=== PATIENT | female | born 1980 | race Caucasian/White ===

== ENCOUNTER 2023-04-04 13:59 | Outpatient (RCR) | payer MEDICAID, SELFPAY | END 2023-09-25 17:00 | disposition home or self-care (01) | LOC: HO.WCC 13:59 | PROVIDERS: PCP Family Medicine; Visit Provider Surgery | DX: S81.812D Laceration without foreign body, left lower leg, subsequent encounter (principal); S21.001D Unspecified open wound of right breast, subsequent encounter; F64.0 Transsexualism; Z86.19 Personal history of other infectious and parasitic diseases; Z98.86 Personal history of breast implant removal; Z79.2 Long term (current) use of antibiotics | CPT/HCPCS: 99214 ==

== ENCOUNTER → 2023-04-10 11:24 | Outpatient (BNVA) | payer MEDICAID, SELFPAY | PROVIDERS: PCP Family Medicine; Referring Provider Family Medicine; Visit Provider Surgery | DX: S81.802A Unspecified open wound, left lower leg, initial encounter (principal); X58.XXXA Exposure to other specified factors, initial encounter; Y93.9 Activity, unspecified; Y92.9 Unspecified place or not applicable; Y99.8 Other external cause status; L97.222 Non-pressure chronic ulcer of left calf with fat layer exposed; L97.223 Non-pressure chronic ulcer of left calf with necrosis of muscle; B20 Human immunodeficiency virus [HIV] disease | CPT/HCPCS: 99202 ==

== ENCOUNTER → 2023-04-25 09:42 | Day surgery (SDC) | payer MEDICAID, SELFPAY ==
[2023-04-23 09:56] VITALS: BMI 20.4
--- NOTE | 2023-04-25 07:39 | MHC.SHP ---
Pre-Procedural Eval Section A Date of Service: 04/25/23 The patient is an INPATIENT: No Changes since office visit: No Cold of Flu in the past 2 weeks, No New Medical Problems, No Changes in Medication and No Patient answered all questions The History & Physical has been completed within 30 days and I have reviewed it.: Yes Section B Chief Complaint: Unspecified open wound, unspecified lower leg, Allergies: Allergies Allergy/AdvReac Type Severity Reaction Status Date / Time Penicillins Allergy Severe RASH Unverified 04/23/23 09:41 codeine [Codeine] Allergy Intermediate RASH Unverified 04/23/23 09:41 oxycodone Allergy Intermediate Rash Verified 04/23/23 09:41 Plan I have reviewed the history and physical and performed a pertinent physical examination on my patient. No changes have occurred unless specified. Time Spent With Patient Time: Total time managing care of this patient today ____ minutes.
[2023-04-25 10:16] VITALS: BP 105/61; PULSE 90; RESP 18; TEMP 36.7; O2SAT 100
[2023-04-25] MEDS: Lactated Ringers 1,000 ML 100 ML IVCONT (10:17)
[2023-04-25 10:47] LABS: Amphetamine Screen Urine Not Detected (Not Detect); Barbiturates, Urine Not Detected (Not Detect); Benzodiazepines Screen Urine Not Detected (Not Detect); Cannabinoid Screen Urine Not Detected (Not Detect); Cocaine Screen Urine POSITIVE (Not Detect); Fentanyl, urine POSITIVE (Not Detect); Opiate Screen Urine POSITIVE (Not Detect); Phencyclidine Screen Urine Not Detected (Not Detect)
--- NOTE | 2023-04-25 11:05 | PC.NURSE ---
IV fluids were scanned. 2 attempts at IV insertion with no success due to excessive scarring on bilateral arms. No IV was placed. Decision was made to cancel procedure due to urine tox results. Dr. Onofre updated patient that procedure is cancelled. Security was called to escort patient out due to anger at realization of cancellation. Patient has all belongings. Mother to meet patient outside.
--- NOTE | 2023-04-25 11:11 | PC.NURSE ---
patient escorted out with 2 security guards due to swearing loudly, being beligerent, whipping open curtains with force and being rude to staff at news of cancellation.
== END | disposition home or self-care (01) ==
PROVIDERS: Anesthesiology; PCP Family Medicine; Visit Provider Surgery
DX: S81.809A Unspecified open wound, unspecified lower leg, initial encounter (principal); Z53.8 Procedure and treatment not carried out for other reasons; R82.5 Elevated urine levels of drugs, medicaments and biological substances; X58.XXXA Exposure to other specified factors, initial encounter; Y93.9 Activity, unspecified; Y92.9 Unspecified place or not applicable; Y99.9 Unspecified external cause status
CPT/HCPCS: 80307; J2250; J2795; J3010

== ENCOUNTER → 2023-05-14 09:13 | Day surgery (SDC) | payer MEDICAID, SELFPAY ==
[2023-05-09 09:50] VITALS: BMI 20.4
--- NOTE | 2023-05-13 12:54 | MHC.SHP ---
Pre-Procedural Eval Section A Date of Service: 05/13/23 The patient is an INPATIENT: No Changes since office visit: No Cold of Flu in the past 2 weeks, No New Medical Problems, No Changes in Medication and No Patient answered all questions The History & Physical has been completed within 30 days and I have reviewed it.: Yes Section B Chief Complaint: Unspecified open wound, unspecified lower leg, Allergies: Allergies Allergy/AdvReac Type Severity Reaction Status Date / Time Penicillins Allergy Severe RASH Verified 04/25/23 09:53 codeine [Codeine] Allergy Intermediate RASH Verified 04/25/23 09:53 oxycodone Allergy Intermediate Rash Verified 04/23/23 09:41 Plan I have reviewed the history and physical and performed a pertinent physical examination on my patient. No changes have occurred unless specified. Time Spent With Patient Time: Total time managing care of this patient today ____ minutes.
[2023-05-14 09:47] VITALS: BMI 21.5
[2023-05-14 09:49] VITALS: BP 103/64; PULSE 88; RESP 16; TEMP 36.8; O2SAT 98
[2023-05-14 10:32] LABS: Hematocrit 21.6 % (37.0-47.0); Mean Corpuscular HGB Conc 30.6 g/dl (31.0-35.0); Mean Corpuscular Hemoglobin 21.9 pg (27.0-33.0); Mean Corpuscular Volume 71.5 fL (80.0-98.0); Mean Platelet Volume 9.5 fL (9.4-12.3); Platelet Count 145 X10*3/uL (160-400); Red Blood Count 3.02 X10*6/uL (4.20-5.50); Red Cell Distribution Width 16.8 % (11.0-16.0)
[2023-05-14 10:33] LABS: Anion Gap 10 (12-20); Carbon Dioxide 20 mmol/L (22-29); Chloride 106 mmol/L (96-108); Potassium 4.1 mmol/L (3.3-5.1); Sodium 132 mmol/L (135-145)
[2023-05-14 10:35] LABS: Hemoglobin 6.6 g/dl (12.0-16.0)
--- NOTE | 2023-05-14 10:36 | PC.NURSE ---
Dr. Hoskins updated of critical lab value as reported from chemistry of hemoglobin of 6.6. Dr. Hoskins speaking with patient now.
--- NOTE | 2023-05-14 10:43 | PC.NURSE ---
Dr. Del Toro and Dr. Hoskins have both spoke with patient regarding critical lab results and decision was made to send patient to emergency room.
--- NOTE | 2023-05-14 10:47 | HO.ANESEVENT ---
Anesthesia Event Note Date of Service: 05/14/23 Event Note: Pt seen pre-op for a debridement with Dr. Hoskins. Pt refusing to urinate for tox screen, but admits to doing illicit substances within the last couple of days. Labs obtained today show H/H of 6.6 and 21.6, which was significantly lower than in 2020when labs were last obtained. Surgical case was cancelled and pt was urged to go to ER, but patient adamantly refused. Time Spent With Patient Time: Total time managing care of this patient today ____ minutes.
--- NOTE | 2023-05-14 10:48 | PC.NURSE ---
Patient arrived to preop room. Left leg wrapped up with gauze. Wound present on right leg, open to air. Patient states My right leg opened up too. Please let the doctor know . This nurse wrapped up right leg with ABD and gauze for protection during preop. Labs drawn per Dr. Del Toro's request. Utox unable to be obtained due to patient not being able to pee. When starting IV, Patient voiced I did use cocaine 3 days ago, nothing else . Patient tearful, reassured by this nurse. Dr. Del Toro made aware. Chemistry called with critical lab result, HGB 6.6. Dr. Hoskins and Dr. Del Toro made aware and at bedside requesting patient be transferred to ED. Patient refused. All belongings returned to patient, escorted to waiting area.
== END ==
PROVIDERS: Anesthesiology; PCP Family Medicine; Visit Provider Surgery
DX: S81.809A Unspecified open wound, unspecified lower leg, initial encounter (principal); Z53.8 Procedure and treatment not carried out for other reasons; Z88.8 Allergy status to other drugs, medicaments and biological substances; X58.XXXA Exposure to other specified factors, initial encounter; Y93.9 Activity, unspecified; Y92.9 Unspecified place or not applicable; Y99.9 Unspecified external cause status
CPT/HCPCS: 36415; 80051; 85027; 99499

== ENCOUNTER 2023-09-17 10:08 | Outpatient (REF) | payer MEDICAID, SELFPAY ==
[2023-09-17 10:58] LABS: MANUAL DIFF FLAG NO
[2023-09-17 11:10] LABS: Basophils Percent Auto 0.2 % (0-2); Eosinophils Absolute Auto 0.2 X10*3/uL (0.0-0.4); Eosinophils Percent Auto 3.7 % (0-4); Hematocrit 34.3 % (37.0-47.0); Imm Gran Abs Auto 0.02 X10*3/uL (0.00-0.03); Imm Gran Pct Auto 0.5 % (0.0-0.4); Lymphocytes Absolute Auto 1.3 X10*3/uL (1.2-4.9); Lymphocytes Percent Auto 30.7 % (20-40); Mean Corpuscular HGB Conc 32.1 g/dl (31.0-35.0); Mean Corpuscular Hemoglobin 25.8 pg (27.0-33.0); Mean Corpuscular Volume 80.5 fL (80.0-98.0); Mean Platelet Volume 9.8 fL (9.4-12.3); Monocytes Absolute Auto 0.3 X10*3/uL (0.1-1.2); Monocytes Percent Auto 7.1 % (2-11); Neutrophils Absolute Auto 2.4 x10*3/uL (2.0-8.3); Neutrophils Percent Auto 57.8 % (45-73); Platelet Count 190 X10*3/uL (160-400); Red Blood Count 4.26 X10*6/uL (4.20-5.50); Red Cell Distribution Width 15.8 % (11.0-16.0); White Blood Count 4.1 X10*3/uL (4.8-10.8)
[2023-09-17 12:18] LABS: Alanine Aminotransferase 22 U/L (0-31); Albumin Level 3.3 g/dL (3.5-5.0); Alkaline Phosphatase 128 U/L (39-117); Anion Gap 12 (12-20); Aspartate Amino Transferase 28 U/L (5-31); Bilirubin Total 0.7 mg/dL (0.0-1.0); Blood Urea Nitrogen 13 mg/dL (9-16); Calcium 9.9 mg/dL (8.4-10.2); Carbon Dioxide 28 mmol/L (22-29); Chloride 98 mmol/L (96-108); Estimated Glomerular Filt Rate > 60; Glucose Random 74 mg/dL (60-115); Potassium 3.5 mmol/L (3.3-5.1); Sodium 134 mmol/L (135-145); Total Protein 9.9 g/dL (6.5-8.0)
[2023-09-17 12:22] LABS: HBS Num1 3.38 mIU/mL (0-7.99); HBsAGNum1 0.29 S/CO (0.00-0.99); Hepatitis B Surface Antigen Negative (Negative); ~Hepatitis B Surface Antibody NONREACTIVE (Nonreactive)
[2023-09-17 12:24] LABS: Syphilis Screen Nonreactive (Nonreactive)
[2023-09-17 12:25] LABS: Hepatitis A Antibody IgG REACTIVE (Nonreactive); Hepatitis A Antibody IgM 0.41 Index (0-0.79); ~Hepatitis A Antibody IgG 5.13 S/CO (0.00-0.99); ~Hepatitis A Antibody IgM Nonreactive (Nonreactive)
[2023-09-20 08:33] LABS: HCV Log PCR <1.18 NOT DETECTED Log IU/mL (NOT DETECTED); HepC Viral Load <15 NOT DETECTED IU/mL (NOT DETECTED)
== END 2023-09-17 10:09 | disposition home or self-care (01) ==
LOC: HO.HHCL 10:08
PROVIDERS: Visit Provider Internal Medicine
DX: F11.20 Opioid dependence, uncomplicated (principal)
CPT/HCPCS: 36415; 80053; 85025; 86706; 86708; 86709; 86780; 87340; 87522

== ENCOUNTER 2023-09-25 21:38 | Emergency (ER) | payer MEDICAID, SELFPAY ==
[2023-09-25 21:59] VITALS: BP 108/68; PULSE 83; RESP 16; O2SAT 99; BMI 19.7
--- NOTE | 2023-09-25 22:06 | ED_ITS ---
HPI - Wound/Laceration General Chief Complaint: General Medical Stated Complaint: ?? Time Seen by Provider: 09/25/23 21:50 Source: patient Mode of arrival: EMS Limitations: no limitations History of Present Illness HPI narrative: 43-year-old female history of history of venous stasis dermatitis, PTSD, male to female transgender, anemia, anxiety, HIV disease , chronic nonhealing right leg wound who had a skin graft done yesterday at [facility] and has a wound VAC applied over the skin graft who presents emergency department for evaluation of malfunction of the wound VAC. patient states that she kept getting an error message that there was a week and he felt as if the wound VAC head shot off therefore she called an ambulance and came to emergency department for evaluation. She denies any systemic symptoms such as fever, chills, fatigue, weakness. Related Data Home Medications Medication Instructions Recorded Confirmed albuterol sulfate 90 mcg/actuation 2 puff inhalation Q4-6H PRN 04/23/23 04/23/23 aerosol inhaler (Ventolin HFA) Shortness Of Breath bictegravir 50 mg-emtricitabine 1 tab PO QAM 04/23/23 05/14/23 200 mg-tenofovir alafenam 25 mg tablet (Biktarvy) dronabinol 5 mg capsule 5 mg PO BID 04/23/23 05/14/23 ferrous sulfate 325 mg (65 mg 325 mg PO DAILY 04/23/23 05/14/23 iron) tablet fluticasone propionate 110 1 puff inhalation BID 04/23/23 05/14/23 mcg/actuation HFA aerosol inhaler (Flovent HFA) gabapentin 600 mg tablet 600 mg PO TID 04/23/23 05/14/23 methadone 10 mg/5 mL oral solution 40 mg PO DAILY 04/23/23 05/14/23 Allergies Allergy/AdvReac Type Severity Reaction Status Date / Time Penicillins Allergy Severe RASH Verified 09/25/23 22:05 codeine [Codeine] Allergy Intermediate RASH Verified 09/25/23 22:05 oxycodone Allergy Intermediate Rash Verified 09/25/23 22:05 Review of Systems Review of Systems: Yes all other systems are reviewed and are negative PMFSH Past Medical History Medical History Venous stasis dermatitis PTSD (post-traumatic stress disorder) [employer]-umpobu transgender person Anemia Anxiety HIV (human immunodeficiency virus infection) Surgical History History of incision and drainage Social History Social History Are you a primary career transition specialist to a significant other at home: No Do you presently have visiting nurse or other home services: No Patient Tobacco Use Status: Former Tobacco user Quit Date: 2017 Tobacco use type: Cigarette Years Smoked: 14 Smoked in Last 30 Days: Yes Use of substances other than those prescribed or required for medical reasons: No Advance Directives: Yes Advance Directives on File: No Physical Exam Vital Signs: Vital Signs: Last Vital Signs Pulse 83 09/25/23 21:59 Resp 16 09/25/23 21:59 BP 108/68 09/25/23 21:59 Pulse Ox 99 09/25/23 21:59 O2 Del Method Room Air 09/25/23 21:59 BMI result Body Mass Index 19.7 Vital signs were normal Exam Patient has a skin graft over the right pretibial area which is covered by a wound VAC. there is no erythema or increased warmth. The graft site on the right medial thigh has no increased erythema or warmth. Medical Decision Making Medical Decision Making MDM Narrative: 43-year-old female history of history of venous stasis dermatitis, PTSD, male to female transgender, anemia, anxiety, HIV disease , chronic nonhealing right leg wound who had a skin graft done yesterday at [facility] and has a wound VAC applied over the skin graft who presents emergency department for evaluation of malfunction of the wound VAC. the patient's surgical wounds do not appear to be infected. The wound VAC appears to be functioning and is on continuous suction. Since the patient reported that the wound VAC event error message of air leak, I asked the nurse to reinforce the margins of occlusive dressing with Tegaderm to try to prevent any further leaks. Patient will be discharged back to home by ambulance since she is unable to walk. Differential Diagnosis Differential Diagnoses: The differential diagnosis associated with the presentation includes Differential diagnosis includes was not limited to wound infection, malfunction of wound VAC, air leak around occlusive dressing Discharge Plan Discharge Clinical Impression: Encounter for management of wound VAC Patient Disposition: Home, Self-Care Additional Instructions: At this time, appears to be wound VAC is functioning normally. The nurse reinforced the margins of the occlusive dressings with Tegaderm to try to prevent further leaks. Follow-up with your [facility] surgeon for re-evaluation if you continue to have error messages on the wound VAC. Please return to the emergency department if your symptoms get worse or if you develop any symptoms that are concerning to you. Prescriptions: No Action gabapentin 600 mg tablet 600 mg PO TID methadone 10 mg/5 mL Solution 40 mg PO DAILY dronabinol 5 mg capsule 5 mg PO BID ferrous sulfate 325 mg (65 mg iron) tablet 325 mg PO DAILY albuterol sulfate [Ventolin HFA] 90 mcg/actuation HFA aerosol inhaler 2 puff INHALATION Q4-6H PRN (Reason: Shortness Of Breath) fluticasone propionate [Flovent HFA] 110 mcg/actuation HFA aerosol inhaler 1 puff INHALATION BID Biktarvy 50-200-25 mg tablet 1 tab PO QAM
--- NOTE | 2023-09-25 22:15 | PC.NURSE ---
Pt ca&ox4, no signs of distress. Pt denies pain wound vac currently working and no longer reporting an air leak plan of care ongoing.
== END 2023-09-26 00:35 | disposition home or self-care (01) ==
PROVIDERS: Emergency Provider Emergency Medicine Emergency Medical Services
DX: Z48.00 Encounter for change or removal of nonsurgical wound dressing (principal); S81.801D Unspecified open wound, right lower leg, subsequent encounter; X58.XXXD Exposure to other specified factors, subsequent encounter
CPT/HCPCS: 99282; 99284

== ENCOUNTER 2024-03-19 14:10 | Outpatient (REF) | payer MEDICAID, SELFPAY | END 2024-03-19 14:11 | disposition home or self-care (01) | LOC: HO.HHCL 14:10 | PROVIDERS: Visit Provider Family Medicine | DX: Z13.89 Encounter for screening for other disorder (principal) ==

== ENCOUNTER 2024-04-20 12:19 | Outpatient (REF) | payer MEDICAID, SELFPAY ==
[2024-04-20 13:42] LABS: MANUAL DIFF FLAG NO
[2024-04-20 14:11] LABS: Basophils Percent Auto 0.3 % (0-2); Eosinophils Absolute Auto 0.1 X10*3/uL (0.0-0.4); Eosinophils Percent Auto 2.7 % (0-4); Hematocrit 32.3 % (37.0-47.0); Hemoglobin 10.4 g/dl (12.0-16.0); Imm Gran Abs Auto 0.01 X10*3/uL (0.00-0.03); Imm Gran Pct Auto 0.3 % (0.0-0.4); Lymphocytes Absolute Auto 0.8 X10*3/uL (1.2-4.9); Lymphocytes Percent Auto 26.1 % (20-40); Mean Corpuscular HGB Conc 32.2 g/dl (31.0-35.0); Mean Corpuscular Hemoglobin 23.4 pg (27.0-33.0); Mean Corpuscular Volume 72.7 fL (80.0-98.0); Mean Platelet Volume 9.9 fL (9.4-12.3); Monocytes Absolute Auto 0.2 X10*3/uL (0.1-1.2); Monocytes Percent Auto 5.4 % (2-11); Neutrophils Percent Auto 65.2 % (45-73); Platelet Count 171 X10*3/uL (160-400); Red Blood Count 4.44 X10*6/uL (4.20-5.50); Red Cell Distribution Width 16.5 % (11.0-16.0)
[2024-04-20 14:57] LABS: Alanine Aminotransferase 17 U/L (0-31); Albumin Level 2.5 g/dL (3.5-5.0); Alkaline Phosphatase 158 U/L (39-117); Anion Gap 10 (12-20); Aspartate Amino Transferase 21 U/L (5-31); Bilirubin Total 0.6 mg/dL (0.0-1.0); Blood Urea Nitrogen 15 mg/dL (9-16); Calcium 8.8 mg/dL (8.4-10.2); Carbon Dioxide 26 mmol/L (22-29); Chloride 102 mmol/L (96-108); Cholesterol 87 mg/dL (<200); Estimated Glomerular Filt Rate 55; Glucose Random 96 mg/dL (60-115); HDL Cholesterol 10 mg/dL (>40); LDL Cholesterol Calculated 52 mg/dL (<100); Potassium 3.8 mmol/L (3.3-5.1); Sodium 134 mmol/L (135-145); Total Protein 8.9 g/dL (6.5-8.0); Triglycerides 127 mg/dL (<150)
[2024-04-20 15:33] LABS: Iron 35 mcg/dL (30-160); Percent Iron Saturation 23 % (15-50); Total Iron Binding Capacity 155 mcg/dL (228-428); Unsaturated Iron Binding 120 ug/dL
[2024-04-20 15:53] LABS: Ferritin 524 ng/mL (10-250)
[2024-04-20 20:19] LABS: Reflex LDLD? No
[2024-04-21 08:47] LABS: ~HepC Num1 12.11 S/CO (0.00-0.79); ~Hepatitis C Antibody Reactive (Nonreactive)
[2024-04-21 14:28] LABS: HIV RNA PCR Qn Copies NOT DETECTED copies/mL (NOT DETECTED); HIV RNA PCR Qn Log Copies NOT DETECTED (NOT DETECTED)
[2024-04-22 06:38] LABS: RPR Rapid Plasma Reagin NON-REACTIVE (NON-REACTIVE)
[2024-04-23 02:18] LABS: TS Negative Control Passed; TS Panel A 0; TS Panel B 0; TS Positive Control Passed; TSpotTB Negative (Negative)
[2024-04-23 18:30] LABS: Absolute CD3 Count 645 cells/uL (840-3060); Absolute CD4 Count 264 cells/uL (490-1740); Absolute CD8 Count 363 cells/uL (180-1170); Absolute Lymphocytes 748 cells/uL (850-3900); CD4 CD8 Ratio 0.73 (0.86-5.00); Percent CD3 Cells 86 % (57-85); Percent CD4 Cells 35 % (30-61); Percent CD8 Cells 48 % (12-42)
[2024-04-27 13:24] LABS: HCV Log PCR <1.18 NOT DETECTED Log IU/mL (NOT DETECTED); HepC Viral Load <15 NOT DETECTED IU/mL (NOT DETECTED)
== END 2024-04-20 12:20 | disposition home or self-care (01) ==
LOC: HO.HHCL 12:19
PROVIDERS: Visit Provider Student in an Organized Health Care Education/Training Program
DX: B20 Human immunodeficiency virus [HIV] disease (principal)
CPT/HCPCS: 36415; 80053; 80061; 82728; 83540; 85025; 86359; 86360; 86481; 86592; 86803; 87522; 87536

== ENCOUNTER 2024-11-23 13:51 | Outpatient (REF) | payer MEDICAID, SELFPAY ==
[2024-11-23 16:14] LABS: Eosinophils Percent Auto 2.2 % (0-4); Hematocrit 28.6 % (37.0-47.0); Hemoglobin 9.3 g/dl (12.0-16.0); Lymphocytes Absolute Auto 0.4 X10*3/uL (1.2-4.9); Lymphocytes Percent Auto 38.5 % (20-40); MANUAL DIFF FLAG SCAN; Mean Corpuscular HGB Conc 32.5 g/dl (31.0-35.0); Mean Corpuscular Hemoglobin 25.5 pg (27.0-33.0); Mean Corpuscular Volume 78.4 fL (80.0-98.0); Mean Platelet Volume 11.2 fL (9.4-12.3); Monocytes Absolute Auto 0.1 X10*3/uL (0.1-1.2); Monocytes Percent Auto 6.6 % (2-11); Neutrophils Absolute Auto 0.5 x10*3/uL (2.0-8.3); Neutrophils Percent Auto 52.7 % (45-73); Red Blood Count 3.65 X10*6/uL (4.20-5.50); Red Cell Distribution Width 19.5 % (11.0-16.0); SCAN SMEAR FLAG 1
[2024-11-23 16:27] LABS: Alanine Aminotransferase 15 U/L (0-31); Albumin Level 1.5 g/dL (3.5-5.0); Alkaline Phosphatase 317 U/L (39-117); Anion Gap 8 (12-20); Aspartate Amino Transferase 30 U/L (5-31); Bilirubin Direct 0.3 mg/dL (0.0-0.5); Bilirubin Total 0.4 mg/dL (0.0-1.0); Blood Urea Nitrogen 33 mg/dL (9-16); Calcium 9.2 mg/dL (8.4-10.2); Carbon Dioxide 25 mmol/L (22-29); Chloride 101 mmol/L (96-108); Estimated Glomerular Filt Rate 38; Glucose Random 107 mg/dL (60-115); Potassium 3.8 mmol/L (3.3-5.1); Sodium 130 mmol/L (135-145); Total Protein 9.1 g/dL (6.5-8.0)
[2024-11-23 16:31] LABS: Osmolality, Serum 293 mosm/kg (281-305)
[2024-11-23 17:04] LABS: Folate 7.5 ng/mL (> or = 4.0); Vitamin B12 1109 pg/mL (200-900)
[2024-11-23 18:49] LABS: Platelet Count 70 X10*3/uL (160-400); White Blood Count 0.9 X10*3/uL (4.8-10.8)
[2024-11-23 19:47] LABS: SLIDE REVIEW VERIFIED
[2024-11-29 12:53] LABS: Absolute CD3 Count 244 cells/uL (840-3060); Absolute CD4 Count 92 cells/uL (490-1740); Absolute CD8 Count 143 cells/uL (180-1170); Absolute Lymphocytes 284 cells/uL (850-3900); CD4 CD8 Ratio 0.64 (0.86-5.00); Percent CD3 Cells 86 % (57-85); Percent CD4 Cells 32 % (30-61); Percent CD8 Cells 50 % (12-42)
== END 2024-11-23 13:52 | disposition home or self-care (01) ==
LOC: HO.HHCL 13:51
PROVIDERS: Student in an Organized Health Care Education/Training Program; Visit Provider Internal Medicine
DX: B20 Human immunodeficiency virus [HIV] disease (principal); D50.9 Iron deficiency anemia, unspecified; E87.1 Hypo-osmolality and hyponatremia
CPT/HCPCS: 36415; 80053; 80076; 82248; 82607; 82746; 83930; 85025; 86359; 86360

== ENCOUNTER 2025-03-12 12:13 | Outpatient (REF) | payer MEDICAID, SELFPAY ==
[2025-03-12 13:57] LABS: Basophils Percent Auto 0.4 % (0-2); Eosinophils Absolute Auto 0.1 X10*3/uL (0.0-0.4); Eosinophils Percent Auto 3.1 % (0-4); Hematocrit 28.3 % (37.0-47.0); Hemoglobin 9.2 g/dl (12.0-16.0); Imm Gran Abs Auto 0.01 X10*3/uL (0.00-0.03); Imm Gran Pct Auto 0.4 % (0.0-0.4); Lymphocytes Absolute Auto 0.6 X10*3/uL (1.2-4.9); Lymphocytes Percent Auto 26.2 % (20-40); Mean Corpuscular HGB Conc 32.5 g/dl (31.0-35.0); Mean Corpuscular Hemoglobin 23.7 pg (27.0-33.0); Mean Corpuscular Volume 72.8 fL (80.0-98.0); Mean Platelet Volume 9.6 fL (9.4-12.3); Monocytes Absolute Auto 0.1 X10*3/uL (0.1-1.2); Monocytes Percent Auto 4.4 % (2-11); Neutrophils Absolute Auto 1.5 x10*3/uL (2.0-8.3); Neutrophils Percent Auto 65.5 % (45-73); Platelet Count 109 X10*3/uL (160-400); Red Blood Count 3.89 X10*6/uL (4.20-5.50); Red Cell Distribution Width 16.7 % (11.0-16.0)
[2025-03-12 13:58] LABS: White Blood Count 2.3 X10*3/uL (4.8-10.8)
[2025-03-12 14:19] LABS: Alanine Aminotransferase 20 U/L (0-31); Albumin Level 2.8 g/dL (3.5-5.0); Alkaline Phosphatase 122 U/L (39-117); Anion Gap 7 (12-20); Aspartate Amino Transferase 31 U/L (5-31); Bilirubin Total 0.4 mg/dL (0.0-1.0); Blood Urea Nitrogen 30 mg/dL (9-16); Calcium 10.6 mg/dL (8.4-10.2); Carbon Dioxide 23 mmol/L (22-29); Chloride 104 mmol/L (96-108); Estimated Glomerular Filt Rate 37; Glucose Random 78 mg/dL (60-115); Potassium 3.4 mmol/L (3.3-5.1); Sodium 131 mmol/L (135-145); Total Protein 9.2 g/dL (6.5-8.0)
[2025-03-13 14:49] LABS: HIV RNA PCR Qn Copies 29 copies/mL (NOT DETECTED); HIV RNA PCR Qn Log Copies 1.46 (NOT DETECTED)
[2025-03-16 22:08] LABS: Absolute CD3 Count 448 cells/uL (840-3060); Absolute CD4 Count 185 cells/uL (490-1740); Absolute CD8 Count 243 cells/uL (180-1170); Absolute Lymphocytes 523 cells/uL (850-3900); CD4 CD8 Ratio 0.76 (0.86-5.00); Percent CD3 Cells 86 % (57-85); Percent CD4 Cells 35 % (30-61); Percent CD8 Cells 46 % (12-42)
== END 2025-03-12 12:14 | disposition home or self-care (01) ==
LOC: HO.HHCL 12:13
PROVIDERS: Internal Medicine; Visit Provider Student in an Organized Health Care Education/Training Program
DX: B20 Human immunodeficiency virus [HIV] disease (principal); D50.9 Iron deficiency anemia, unspecified
CPT/HCPCS: 36415; 80053; 85025; 86359; 86360; 87536

== ENCOUNTER 2025-05-27 12:04 | Outpatient (REF) | payer MEDICAID, SELFPAY ==
--- OUTSIDE RECORDS SUMMARY | 2025-05-27 13:02 | XMS_ITS | Clinical Summary ---
Author Organization [facility] it[facility] Address [address] [place] [address] Care Team Providers Care Rn Staff Name Role Phone Unavailable Primary Care Provider Unavailabl e Social History Tobacco Use Types Packs/Day Years Used Date Smoking Tobacco: Never Assessed Comments Unknown Sex and Gender Information Value Date Recorded Sex Assigned at Not on file Legal Sex Female 9:55 AM EST Gender Identity Not on file Sexual Orientation Not on file Plan of Treatment Health Maintenance Due Date Last Done Comments Breast Cancer Screening 1981 DTaP,Tdap,and Td Vaccines (1 - Tdap) 01/29/2000 Hepatitis B Vaccines (1 of 3 - 19+ 3-dose series) 01/29/2000 Cervical Cancer Screening: P ap Smear 2002 HIV Screening 09/11/2022 Hepatitis C Screening 09/11/2022 Social Influencers of Health Screening 09/11/2022 COVID-19 Vaccine ( - 2023-2 5 season) 2024 Depression Screening 10/14/2024 Influenza Vaccine (#1) 2025 HIB Vaccines Aged Out No longer eligi ble based on patient's age to complete this topic HPV Vaccines Aged Out No longer eligi ble based on patient's age to complete this topic Hepatitis A Vaccines Aged Out No long er eligible based on patient's age to complete this topic IPV Vaccines Aged Out No longer eligi ble based on patient's age to complete this topic MMR Vaccines Aged Out No longer eligi ble based on patient's age to complete this topic Meningococcal ACWY Vaccine Aged Out N o longer eligible based on patient's age to complete this topic Meningococcal B Vaccine Aged Out No l onger eligible based on patient's age to complete this topic Pneumococcal Vaccine: Pediat rics (0 to 5 Years) and At-Risk Patients (6 to 49 Years) Aged Out No longer eligible b ased on patient's age to complete this topic RSV Immunization Patients Un hawk 20 months Aged Out No longer eligible b ased on patient's age to complete this topic Varicella Vaccines Aged Out No longer eligible based on patient's age to complete this topic
[2025-05-27 13:40] LABS: MANUAL DIFF FLAG NO
[2025-05-27 13:46] LABS: Hematocrit 26.0 % (37.0-47.0); Hemoglobin 8.4 g/dl (12.0-16.0); Imm Gran Abs Auto 0.01 X10*3/uL (0.00-0.03); Imm Gran Pct Auto 0.5 % (0.0-0.4); Lymphocytes Absolute Auto 0.6 X10*3/uL (1.2-4.9); Mean Corpuscular HGB Conc 32.3 g/dl (31.0-35.0); Mean Corpuscular Hemoglobin 23.1 pg (27.0-33.0); Mean Corpuscular Volume 71.6 fL (80.0-98.0); NRBC Abs Auto 0.000 X10*3/uL (0.0-0.012); NRBC Pct Auto 0.0 /100WBC (0.0-0.2); Platelet Count 192 X10*3/uL (160-400); Red Blood Count 3.63 X10*6/uL (4.20-5.50); SCAN SMEAR FLAG 1
[2025-05-27 13:51] LABS: White Blood Count 2.1 X10*3/uL (4.8-10.8)
[2025-05-27 14:10] LABS: Parathyroid Hormone Intact < 4.0 pg/mL (8.7-77.1)
[2025-05-27 14:19] LABS: Alanine Aminotransferase 6 U/L (0-31); Albumin Level 2.5 g/dL (3.5-5.0); Alkaline Phosphatase 137 U/L (39-117); Anion Gap 10 (12-20); Aspartate Amino Transferase 26 U/L (5-31); Blood Urea Nitrogen 27 mg/dL (9-16); Calcium 11.0 mg/dL (8.4-10.2); Carbon Dioxide 26 mmol/L (22-29); Chloride 99 mmol/L (96-108); Estimated Glomerular Filt Rate 40; Magnesium 1.9 mg/dL (1.6-2.6); Potassium 3.6 mmol/L (3.3-5.1); Sodium 131 mmol/L (135-145); Total Protein 8.8 g/dL (6.5-8.0)
[2025-05-27 14:28] LABS: Osmolality, Serum 285 mosm/kg (281-305)
[2025-05-31 21:38] LABS: Calcium, Ionized 6.5 mg/dL (4.7-5.5)
== END 2025-05-27 12:05 | disposition home or self-care (01) ==
LOC: HO.10HDLNP 12:04
PROVIDERS: Internal Medicine; PCP Student in an Organized Health Care Education/Training Program; Visit Provider Student in an Organized Health Care Education/Training Program
DX: B20 Human immunodeficiency virus [HIV] disease (principal); E87.1 Hypo-osmolality and hyponatremia
CPT/HCPCS: 80053; 82330; 83735; 83930; 83970; 84100; 85025

== ENCOUNTER 2025-06-28 11:26 | Outpatient (REF) | payer MEDICAID, SELFPAY ==
--- OUTSIDE RECORDS SUMMARY | 2025-06-28 15:42 | XMS_ITS | Clinical Summary ---
Author Organization [facility] Address [address] [place] [address] Care Team Providers Care Photographic Artist Name Role Phone Unavailable Primary Care Provider [...] 09/11/2022 Social Influencers of Health Screening 09/11/2022 Depression Screening 10/14/2024 COVID-19 Vaccine ( - 2023-2 5 season) 2025 Influenza Vaccine (#1) 2025 HIB Vaccines Aged [...]
== END 2025-06-28 11:27 | disposition home or self-care (01) ==
LOC: HO.HHCL 11:26
PROVIDERS: PCP Student in an Organized Health Care Education/Training Program; Visit Provider Student in an Organized Health Care Education/Training Program
DX: Z13.89 Encounter for screening for other disorder (principal)

== ENCOUNTER 2025-08-31 13:55 | Outpatient (REF) | payer MEDICAID, SELFPAY ==
[2025-08-31 17:34] LABS: CT PCR Urine NOT DETECTED (Not Detect.); NG PCR Urine NOT DETECTED (Not Detect.)
--- OUTSIDE RECORDS SUMMARY | 2025-09-01 07:46 | XMS_ITS | Clinical Summary ---
Author Organization [facility] Address [address] [place] [address] Phone Care Team Providers Care Biology Manager Name Role Phone Physician, Pcp Unknown Primary Care Provider Zarina vailable Allergies No known active allergies Medications naloxone (NARCAN) 4 mg/0.1 mL nasal spray Administer 1 each (4 mg total) into affected nostril(s) if needed for opioid reversal or respiratory depression. Give 4 mg (1 spray) into one nostril. May repeat every 2-3 minutes if needed, alternating nostrils, until medical assistance becomes available. 2 each 07/19/20 26 Active Encounters Date Type Department Care Team Description 07/19/2025 4:29 PM EDT - 07/19/2025 7:20 PM EDT Emergency [facility] Emergency [address] [place] [address] Sunil Humphrey MD Opioid use disorder (Primary Dx) Discharge Disposition: Home or Self Care from Last 3 Months Medical History Medical History Date Comments HIV (human immunodeficiency virus infection) (CM S/HCC V24, [facility] V28) Social History Tobacco Use Types Packs/Day Years Used Date Smoking Tobacco: Never Sex and Gender Information Value Date Recorded Sex Assigned at Male 07/19/2025 5:34 PM EDT Legal Sex Female 9:55 AM EST Gender Identity Female 07/19/2025 5:34 PM EDT Sexual Orientation Not on file Obstetrics History Last Filed Vital Signs Vital Sign Reading Time Taken Comments Blood Pressure 142/91 07/19/2025 4:40 PM EDT Pulse 98 07/19/2025 5:30 PM EDT Temperature 36.7 C (98.1 F) 07/19/2025 4:40 PM EDT Respiratory Rate 19 07/19/2025 5:30 PM EDT Oxygen Saturation 98% 07/19/2025 5:30 PM EDT Inhaled Oxygen Concentration - - Weight 45.4 kg (100 lb) 07/19/2025 4:40 PM EDT Height 154.9 cm (5' 1 ) 07/19/2025 4:40 PM EDT Body Mass Index 18.89 07/19/2025 4:40 PM EDT Plan of Treatment Health Maintenance Due Date Last Done Comments DTaP,Tdap,and Td Vaccines (1 - Tdap) 01/29/2000 Hepatitis B Vaccines (1 of 3 - 19+ 3-dose series) 01/29/2000 HPV Vaccines (1 - 3-dose SCD M series) 01/29/2008 Cholesterol Screening (Lipid Panel) 09/11/2022 HIV Screening 09/11/2022 Hepatitis C Screening 09/11/2022 Social Influencers of Health Screening 09/11/2022 Depression Screening 10/14/2024 COVID-19 Vaccine (1 - 2024-2 6 season) 2025 Influenza Vaccine (#1) 2025 RSV Immunization Adult Patie nts (1 - 1-dose 75+ series) 01/29/2056 HIB Vaccines Aged Out No longer eligi [...] on patient's age to complete this topic Insurance MEDICAID - [place] Care Teams Biology Manager Relationship Specialty Start Date End Date Physician, Pcp Unknown PCP - General 07/19/25
== END 2025-08-31 13:56 | disposition home or self-care (01) ==
LOC: HO.HHCL 13:55
PROVIDERS: PCP Student in an Organized Health Care Education/Training Program; Visit Provider Student in an Organized Health Care Education/Training Program
DX: Z20.2 Contact with and (suspected) exposure to infections with a predominantly sexual mode of transmission (principal); E83.52 Hypercalcemia; E87.1 Hypo-osmolality and hyponatremia; D61.818 Other pancytopenia
CPT/HCPCS: 87491; 87591